=== PATIENT | female | born 1990 | race Hispanic/Latino ===

== ENCOUNTER 2018-01-11 09:42 | Emergency (ER) | payer OTHER ==
[2018-01-11 09:47] VITALS: TEMP 98; O2SAT 98; BMI 23.6
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
[2018-01-11 13:05] VITALS: BP 112/70; PULSE 68; RESP 18
== END 2018-01-11 12:57 | disposition home or self-care (01) ==
LOC: H.ER 09:42
DX: S09.90XA Unspecified injury of head, initial encounter (principal); V43.52XA Car driver injured in collision with other type car in traffic accident, initial encounter; Y92.410 Unspecified street and highway as the place of occurrence of the external cause; F41.9 Anxiety disorder, unspecified

== ENCOUNTER 2018-02-23 09:26 | Emergency (ER) | payer OTHER ==
[2018-02-23 09:26] VITALS: BMI 23.6
[2018-02-23] MEDS ORDERED: Sodium Chloride 0.9% 1,000 ML IV STA (10:22)
[2018-02-23 10:44] LABS: BASO # 0.1 K/uL (0.0-0.2); BASO % 0.5 % (0.0-2.0); EOS # 0.2 K/uL (0.0-0.7); EOS % 2.2 % (0.0-4.0); HEMOGLOBIN 13.1 g/dL (12.0-16.0); LYMPH % 8.7 % (20.0-40.0); MEAN CELL VOLUME 87.7 fl (81.0-99.0); MEAN CORPUSCULAR HEMOGLOBIN 29.6 pg (27.0-31.0); MEAN CORPUSCULAR HGB CONC 33.8 g/dL (33.0-37.0); MEAN PLATELET VOLUME 7.9 fl (7.2-11.7); MONO # 0.9 K/uL (0.0-0.8); MONO % 8.4 % (0.0-10.0); NEUT # 8.7 K/uL (1.8-7.0); NEUT % 80.2 % (50.0-75.0); PLATELET COUNT 225 K/uL (130-400); RBC 4.41 Mil/uL (3.80-5.20); RED CELL DISTRIBUTION WIDTH 13.1 % (11.5-14.5); WHITE BLOOD COUNT 10.9 K/uL (4.8-10.8)
[2018-02-23 10:54] LABS: BLOOD UREA NITROGEN 12 mg/dl (7-17); CALCIUM 9.1 mg/dL (8.4-10.2); GFR NON-AFRICAN AMERICAN > 60
--- NOTE | 2018-02-23 11:03 | ED PDOC ---
HPI: Abdomen Time Seen by Provider: 02/23/18 10:14 Chief Complaint (Nursing): Abdominal Pain Chief Complaint (Provider): Abdominal Pain History Per: Patient History/Exam Limitations: no limitations Onset/Duration Of Symptoms: Days (x1) Current Symptoms Are (Timing): Still Present Additional Complaint(s): 27 year old female, with a past medical history of endometriosis and pain with ovulation, presenting for evaluation of severe lower abdominal pain and weakness this morning. Patient reports a history of similar pain due to endometriosis, however she states her home pain medications are not providing any relief of symptoms. Patient reports numerous appointments with Coordinator [employer]er [employer] and Gynecologic surgeon including laparoscopic surgery for endometriosis. Patient re ports associated nausea, vomiting, headache, dizziness. Patient denies any fever, dysuria, or vagina bleeding. Patient denies any possibility of being . Patient reports LMP 2 wks ago with predicted ovulation of today.. Of note, patient reports taking Cymbalta, Wellbutrin, occasional Percocet, Motrin and Tylenol. PMD: In the city in [facility] Past Medical History Reviewed: Historical Data, Nursing Documentation, Vital Signs Vital Signs: Last Vital Signs Temp 98.4 F 02/23/18 16:01 Pulse 74 02/23/18 16:01 Resp 18 02/23/18 16:01 BP 112/68 02/23/18 16:01 Pulse Ox 100 02/23/18 16:12 - Medical History PMH: Anxiety Other PMH: Endometriosis - Surgical History Other surgeries: Laproscopic surgery (endometriosis), ACL surgery - Family History Family History: States: Unknown Family Hx - Home Medications Home Medications: Ambulatory Orders Medication Instructions Recorded Naproxen [Naprosyn] 500 mg PO BID PRN #15 tablet 01/11/18 Acetaminophen/Oxycodone Hydr 1 tab PO Q6 PRN #8 tab 02/23/18 [Percocet 10/325 mg Tab] - Allergies Allergies/Adverse Reactions: Allergies Allergy/AdvReac Type Severity Reaction Status Date / Time No Known Allergies Allergy Verified 01/11/18 09:58 Review of Systems ROS Statement: Except As Marked, All Systems Reviewed And Found Negative Constitutional: Positive for: Weakness Gastrointestinal: Positive for: Nausea, Vomiting, Abdominal Pain Neurological: Positive for: Headache, Dizziness Physical Exam - Reviewed Nursing Documentation Reviewed: Yes Vital Signs Reviewed: Yes - Physical Exam Appears: Positive for: Non-toxic, No Acute Distress Head Exam: Positive for: ATRAUMATIC, NORMAL INSPECTION, NORMOCEPHALIC Skin: Positive for: Normal Color, Warm, Dry. Negative for: Rash Eye Exam: Positive for: EOMI, PERRL. Negative for: Normal appearance ((+) conjunctival pallor) ENT: Positive for: Normal ENT Inspection Neck: Positive for: Normal, Painless ROM, Supple Cardiovascular/Chest: Positive for: Regular Rate, Rhythm. Negative for: Murmur Respiratory: Positive for: Normal Breath Sounds. Negative for: Respiratory Distress Gastrointestinal/Abdominal: Positive for: Normal Exam, Soft, Tenderness (right, left, and superpubic abdominal tenderness) Back: Positive for: Normal Inspection. Negative for: L CVA Tenderness, R CVA Tenderness, Vertebral Tenderness Extremity: Positive for: Normal ROM. Negative for: Calf Tenderness, Deformity, Swelling Neurologic/Psych: Positive for: Alert, hair blender II-XII (intact), Oriented (x3). Negative for: Motor/Sensory Deficits - Laboratory Results Result Diagrams: 02/23/18 10:40 02/23/18 10:40 - ECG O2 Sat by Pulse Oximetry: 100 (RA) Pulse Ox Interpretation: Normal Medical Decision Making Medical Decision Makin Plan: Pain most likely caused by endometriosis with expected menstruation. Will rule o ut ovarian torsion as patient states pain is worse than usual. Labs sent to rule out anemia based on pallor and weakness. Will reassess patient. 1542: US showed follicle without any other abnormality. Patient understands that endometriosis is a [facility] medical diagnosis and treatment is not to be provided in the ED. Patient to follow up with it senior software engineer java and gynecological surgeon for further treatment and pain management for pain control. Return parameters discussed. Scribe Attestation: Documented by Edgardo Figueroa, acting as a scribe for Chio Avilez MD. Provider Scribe Attestation: All medical record entries made by the Scribe were at my direction and personally dictated by me. I have reviewed the chart and agree that the record accurately reflects my personal performance of the history, physical exam, medical decision making, and the department course for this patient. I have also personally directed, reviewed, and agree with the discharge instructions and disposition. Disposition - Clinical Impression Clinical Impression: Abdominal cramps, Endometriosis - Patient ED Disposition Is Patient to be Admitted: No Counseled Patient/Family Regarding: Studies Performed, Diagnosis, Need For Followup, Rx Given - Disposition Disposition: Routine/Home Disposition Time: 15:42 Condition: IMPROVED Additional Instructions: Only take percocet for severe pain. Otherwise, take Motrin or Tylenol. Follow up with it senior software engineer java and pain specialist for further treatment. Prescriptions: Acetaminophen/Oxycodone Hydr [Percocet 10/325 mg Tab] 1 tab PO Q6 PRN #8 tab PRN Reason: Pain, Severe (8-10) Instructions: Endometriosis, Endometriosis (DC), Stomach Ache and Stomach Upset Forms: [employer] ([employer]) Print Language: BELIZEAN
[2018-02-23 11:15] LABS: SQUAMOUS EPITHIAL 5 /hpf (0-5); URINE BILIRUBIN NEGATIVE (NEGATIVE); URINE BLOOD NEGATIVE (NEGATIVE); URINE CLARITY SLIGHTY-CLOUDY (Clear); URINE COLOR YELLOW (YELLOW); URINE GLUCOSE (UA) NEG (Normal); URINE LEUKOCYTE ESTERASE MOD Leu/uL (Negative); URINE PROTEIN NEGATIVE (NEGATIVE); URINE UROBILINOGEN 0.2-1.0 mg/dL (0.2-1.0)
[2018-02-23 11:36] LABS: EOSINOPHIL 2 % (0-7); LYMPHOCYTE 9 % (20-50); MONOCYTE 4 % (0-10); NEUTROPHIL 85 % (42-75); PLATELET ESTIMATE NORMAL (NORMAL); TOTAL CELLS COUNTED 100
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
[2018-02-23 15:37] VITALS: O2SAT 100
[2018-02-23 16:06] VITALS: BP 112/68; PULSE 74; RESP 18; TEMP 98.4
== END 2018-02-23 15:53 | disposition home or self-care (01) ==
LOC: H.ER 09:26
DX: N80.9 Endometriosis, unspecified (principal); R10.2 Pelvic and perineal pain
CPT/HCPCS: 76830; 76856; 80048; 81003; 81025; 84703; 85025; 96361; 96374; 96375; 96376; 99283; J1885; J2270; J7030